=== PATIENT | male | born 1945 | race Caucasian/White ===

== ENCOUNTER → 2017-05-31 | Outpatient (CLI) | payer MEDICARE ==
[~2017-05-31] MED LIST: ASPI325T PO; ENAL5TAB98 PO; METO25 PO; SIMV20 PO; TRAM50 PO
[2017-05-31 10:19] LABS: HDL CHOLESTEROL 79.7 MG/DL (40.0-60.0)
== END ==
LOC: CLAB 09:26
PROVIDERS: ATTEND Specialist
DX: E78.2 Mixed hyperlipidemia (principal)
CPT/HCPCS: 36415; 80061